=== PATIENT | female | born 2000 | race Caucasian/White ===

== ENCOUNTER 2022-07-18 10:29 | Emergency (ER) | payer BC, SELFPAY ==
[2022-07-18 10:38] VITALS: BP 113/70; PULSE 95; RESP 18; TEMP 36.6; O2SAT 95; BMI 21.1
--- NOTE | 2022-07-18 10:44 | ED.GENADULT ---
HPI - General Adult General Time Seen by Provider: 10:44 Date Seen: 07/18/22 Chief complaint: Chest Pain Stated complaint: Chest pain/cough/difficulty breathing Time Seen by Provider: 07/18/22 10:34 Source: patient and RN notes reviewed Mode of arrival: ambulatory Limitations: no limitations History of Present Illness HPI narrative: Patient is a 21-year-old female coming into the ER with concern of possible pneumonia. She started with an illness over week ago but continues to cough. The cough is productive at times. She is having pain with breathing and coughing. No history of asthma, nonsmoker. This started with chills and probable fevers but does not have a thermometer. She had headache, nasal drainage, coughing and some nausea. No vomiting or diarrhea. She has had pneumonia before and is worried that this could be pneumonia. She has not been sexually active since her last menstrual cycle, thus not worried about any chance of . Related Data Previous Rx's Medication Instructions Recorded doxycycline monohydrate 100 mg 100 mg PO BID #20 caps 07/18/22 capsule Allergies Allergy/AdvReac Type Severity Reaction Status Date / Time No Known Drug Allergies Allergy Verified 07/18/22 10:38 Review of Systems Status of ROS: Reports: 6 or more systems reviewed and unremarkable except as noted in History and below Exam Const: Vital Signs, click to edit/add: Vital Signs - 24 hr 07/18/22 10:38 Temperature 97.8 F Pulse Rate [Right Pulse Oximeter] 95 Respiratory Rate 18 Blood Pressure [Ri ght Upper Arm] 113/70 Pulse Oximetry 95 Oxygen Delivery Me thod Room Air Documenting provider has reviewed patient's vital signs: yes Common normals: no apparent distress, average body habitus, oriented x3, no limitations, healthy appearing and alert General appearance: cooperative, comfortable, well kempt and well developed HENMT: Common normals: normocephalic, head/scalp atraumatic, hearing grossly normal bilaterally, external ears normal, external nose normal, nasal mucous membranes and turbinates normal, moist oral mucous membranes, oropharynx normal, dentition normal and gingiva normal Head and scalp: normocephalic and atraumatic Nose: external nose normal and nasal mucous membranes and turbinates normal External ear: external ears normal Tympanic membrane: TM normal on the left and other (Right canal occluded by cerumen) Eye: Common normals: PERRL, EOMs intact bilaterally, conjunctivae normal and no scleral icterus Conjunctiva: conjunctiva(e) normal Pupil: PERRL Neck & C-Spine: Common normals: full ROM, no lymphadenopathy, supple, no meningeal signs, no JVD and thyroid normal Thyroid: thyroid normal Resp: Common normals: normal respiratory effort, no retractions and no use of accessory muscles Effort & inspection: able to speak in complete sentences Other: Does some splinting or seems uncomfortable when I have her do some deep breathing. Do here rhonchi/rub type sound on the left lower posterior lung field. She sounds clear elsewhere. Cardio: Common normals: no JVD, regular rate, regular rhythm, S1 normal heart sound, S2 normal heart sound, no gallops, no clicks and no murmurs Rate: regular rate Rhythm: regular rhythm Heart sounds: S1 normal and S2 normal Neuro: Common normals: oriented x3 Sensorium/orientation: alert Meningeal signs: no meningeal signs Psych: Appearance: well kempt Course Course Hospital Course: Will obtain a CBC and chest x-ray and this patient, she agrees to this plan. Differential is pleurisy, viral upper respiratory infection verses secondary developing acute bacterial lung infection. She is hemodynamically stable, not hypoxic. Regardless of the decision for antibiotics or not, she is likely to discharge to home. Reevaluation(s) Reevaluation #1: Have reviewed the x-ray findings of pneumonia. Her white count is normal. Reviewed use of doxycycline risks and benefits. Reviewed need for protection against for the remainder of the cycle. Time: 11:39 Vital Signs Vital signs: Initial Vital Signs Temperature 97.8 F 07/18/22 10:38 Temperature Source Temporal Artery Scan 07/18/22 10:38 Pulse Rate 95 07/18/22 10:38 Respiratory Rate 18 07/18/22 10:38 Blood Pressure 113/70 07/18/22 10:38 Blood Pressure Mean 84 07/18/22 10:38 Blood Pressure Position Sitting 07/18/22 10:38 Pulse Oximetry 95 07/18/22 10:38 Oxygen Delivery Method 07/18/22 10:38 Vital Signs Temperature 97.8 F 07/18/22 10:38 Pulse Rate 95 07/18/22 10:38 Respiratory Rate 18 07/18/22 10:38 Blood Pressure 113/70 07/18/22 10:38 Pulse Oximetry 95 07/18/22 10:38 Oxygen Delivery Method 07/18/22 10:38 Temperature 97.8 F 07/18/22 10:38 Pulse Rate 95 07/18/22 10:38 Respiratory Rate 18 07/18/22 10:38 Blood Pressure 113/70 07/18/22 10:38 Pulse Oximetry 95 07/18/22 10:38 Oxygen Delivery Method 07/18/22 10:38 Medical Decision Making Lab Data Lab results reviewed: Yes I reviewed the patient's lab results Labs: Lab Results 07/18/22 Range/Units 11:00 WBC 6.67 (4.50-11.00) K/uL RBC 5.20 (4.00-5.20) m/uL Hgb 15.3 (12.0-16.0) gm/dL Hct 44.7 (33.0-51.0) % MCV 86 (80-100) fL MCH 29 (26-34) pg MCHC 34 (32-36) gm/dL RDW Coeff of [place]ard 11.2 L (11.5-15.5) % Plt Count 462 H (140-440) K/uL Neut % (Auto) 72.7 H (42.0-72.0) % Lymph % (Auto) 15.3 L (20-44) % [place] % (Auto) 9.3 (0.0-11.0) % Eos % (Auto) 0.4 (0.0-7.0) % Baso % (Auto) 0.1 (0.0-3.0) % Neut # (Auto) 4.80 (1.7-7.0) K/uL Lymph # (Auto) 1.00 (0.90-2.90) K/uL [place] # (Auto) 0.60 (0.00-0.90) K/UL Eos # (Auto) 0.03 (0.00-0.50) K/uL Baso # (Auto) 0.01 (0.00-0.30) K/uL Imaging Data Chest x-ray: Attestation: I have reviewed the pertinent imaging results. Radiologist's impression: Patient: JERSON FLYNN Facility:[facility] Patient ID:?[id number] Site Patient ID:?[id number]. Site :?[id number] Study:?XRay Chest 2 VIEWS-07/18/2022 11:24:59 AM Ordering Physician:Luz Enamorado Final Report: INDICATION: Cough. Pleuritic chest pain. TECHNIQUE: Two-view chest. FINDINGS: Left lower lobe infiltrate compatible with pneumonia. Clear right lung. Normal heart size and pulmonary vascularity. The included skeleton is unremarkable. IMPRESSION: Left lower lobe infiltrate posteromedially. Radiographic follow-up recommended after appropriate treatment. Dictated by Beau Sanchez MD @ 07/18/2022 11:31:44 AM (Electronic Signature) Discharge Plan Discharge Clinical Impression: Pneumonia Patient Disposition: Home, Self-Care Condition: Stable Instructions: Community Acquired Pneumonia (ED) Additional Instructions: Start antibiotics and take as prescribed. Can use [id number] medicine as needed for symptom control. If you are not improving over the next week, or worsening at any point or have concerns, please seek re-evaluation. Activity Level: Activity as Tolerated Prescriptions: New doxycycline monohydrate 100 mg capsule 100 mg PO BID Qty: 20 0RF Stand Alone Forms: [employer] Info Instructions
--- NOTE | 2022-07-18 10:51 | CRLHL7_ITS ---
For Patients: As a result of the Century Cures Act, medical imaging exams and procedure reports are released immediately into your electronic medical record. You may view this report before your referring provider. If you have questions, please contact your health care provider. INDICATION: Cough. Pleuritic chest pain. TECHNIQUE: Two-view chest. FINDINGS: Left lower lobe infiltrate compatible with pneumonia. Clear right lung. Normal heart size and pulmonary vascularity. The included skeleton is unremarkable. IMPRESSION: Left lower lobe infiltrate posteromedially. Radiographic follow-up recommended after appropriate treatment. Dictated by Beau Sanchez MD @ 07/18/2022 11:31:44 AM (Electronically Signed)
[2022-07-18 11:08] LABS: Basophils Absolute Auto 0.01 K/uL (0.00-0.30); Basophils Percent Auto 0.1 % (0.0-3.0); Eosinophils Absolute Auto 0.03 K/uL (0.00-0.50); Eosinophils Percent Auto 0.4 % (0.0-7.0); Hematocrit 44.7 % (33.0-51.0); Hemoglobin* 15.3 gm/dL (12.0-16.0); Immature Granulocytes Abs Auto 0.15 K/uL (0.00-0.30); Immature Granulocytes Pct Auto 2.2 %; Lymphocytes Percent Auto 15.3 % (20-44); Mean Corpuscular HGB Conc 34 gm/dL (32-36); Mean Corpuscular Hemoglobin 29 pg (26-34); Mean Corpuscular Volume 86 fL (80-100); Monocytes Percent Auto 9.3 % (0.0-11.0); Neutrophils Percent Auto 72.7 % (42.0-72.0); Platelet Count* 462 K/uL (140-440); RDW Coefficient of Variation % 11.2 % (11.5-15.5); White Blood Count* 6.67 K/uL (4.50-11.00)
[2022-07-18 11:10] LABS: Slide Review Reflex No
== END 2022-07-18 11:59 | disposition home or self-care (01) ==
PROVIDERS: Emergency Provider Family Medicine
DX: J18.9 Pneumonia, unspecified organism (principal)
CPT/HCPCS: 36415; 71046; 85025; 99283; 99284